=== PATIENT | male | born 1975 | race Two or more races ===

== ENCOUNTER → 2018-08-18 | Day surgery (SDC) | payer OTHER ==
[~2018-08-18] VITALS: Ht 172.7 cm; Wt 83.9 kg
[~2018-08-18] MED LIST: MIDAZOLAM HCL 1MG/1ML-2 ML VIAL ONE; ONDANSETRON HCL 4 MG/2 ML VIAL IV ONE; PROPOFOL 10 MG/ML 20 ML IV ONE; ceFAZolin 1GM/50ML 50 ML IV ONE; ePHEDrine SULFATE 50 MG/ML AMP IV PRN; fentaNYL CITRATE 100 MCG/2 ML VL IV ONE; fentaNYL CITRATE 5 ML ONE; hydrALAZINE HCL 20 MG/ML VL IV PRN
[2018-08-18 09:25] VITALS: BP 120/78
== END | disposition home or self-care (01) ==
LOC: EEVIPCON 07:00 → SUR 07:00
PROVIDERS: ATTEND Surgery
DX: K42.9 Umbilical hernia without obstruction or gangrene (principal); E11.9 Type 2 diabetes mellitus without complications; Z98.890 Other specified postprocedural states
CPT/HCPCS: 49585; 82962; J0690; J2250; J2704; J3010; Q4138

== ENCOUNTER → 2019-07-19 | Outpatient (CLI) | payer OTHER | END | disposition home or self-care (01) | LOC: CT 08:51 | DX: K80.20 Calculus of gallbladder without cholecystitis without obstruction (principal); R91.1 Solitary pulmonary nodule | CPT/HCPCS: 71250 ==

== ENCOUNTER 2019-12-30 17:29 | Inpatient (IN) | payer OTHER ==
[~2019-12-30] VITALS: Ht 172.7 cm; Wt 83.5 kg
[2019-12-30] MEDS ORDERED: DOXYCYCLINE 100MG/250ML 250 ML IV ONE (19:15)
[2019-12-30] MEDS ORDERED: DexAMETHasone SOD PHOS 10MG/1ML VIAL INJ IV ONE (19:15)
[2019-12-30] MEDS: methylPREDNISolone SOD SUCC 125 MG/2 ML VL IV SCH (22:00)
[2019-12-30 22:49] LABS: Basophils # (auto) 0 10 ^3/uL (0-0.2); Basophils % (auto) 0.1 % (0.0-2.0); Eosinophils # (auto) 0 10 ^3/uL (0-0.8); Eosinophils % (auto) 0.5 % (0.0-7.0); Hematocrit 49.7 % (41.0-53.0); Hemoglobin 17.3 g/dL (13.5-17.5); Lymphocytes % (auto) 29.1 % (10.0-50.0); Mean Corpuscular Hemoglobin 33.3 pg (28.0-32.0); Mean Corpuscular Hgb Conc. 34.8 g/dL (32.0-36.0); Mean Corpuscular Volume 95.6 fL (80.0-100.0); Monocytes # (auto) 0.6 10 ^3/uL (0-1.3); Monocytes % (auto) 8.3 % (0.0-12.0); Neutrophils # (auto) 4.2 10 ^3/uL (1.6-8.6); Nucleated Red Blood Cells % 0.1 %; Platelet Count (auto) 133 10^3/uL (140-450); Red Cell Distribution Width 13.8 % (11.8-14.3); White Blood Cell 6.8 10^3/uL (4.4-10.8)
[2019-12-30 23:01] LABS: Albumin 4.1 g/dL (3.4-5.0); BUN/Creatinine Ratio 9.4; Calcium 9.2 mg/dL (8.5-10.1)
[2019-12-30 23:04] LABS: Bilirubin, Total 0.7 mg/dL (0.2-1.0); Total Protein 9.8 g/dL (6.4-8.2)
--- NOTE | 2019-12-30 23:30 | NUR ---
MS admit from ER VANESSA CONNER admitted to [facility] after SBAR received. Patient oriented to BRAYAN GARCIA RN primary RN, unit, room, bed, and unit policies regarding patient care and visiting hours. Patient weighed by bedscale and encouraged to call if they need something. All questions and concerns addressed, patient verbalized understanding.
[2019-12-31] VITALS (8 sets, daily range): BP systolic 118–137; BP diastolic 81–96
[2019-12-31] MEDS ORDERED: METF-929 PO (02:26)
--- NOTE | 2019-12-31 06:00 | NUR ---
Patient states that he is taking 2 kinds of HIV medication namely; Descovy and RAL everyday and taking NPH 30 units in the morning and 20 units of NPH at night. Will relay this information to the day RN.
--- NOTE | 2019-12-31 07:19 | NUR ---
Respiratory note: POX CHECK, PT ASSESSED, NO RESP DISTRESS NOTED HR 89, RR 16, SPO2 91% ON ROOM AIR.
--- NOTE | 2019-12-31 07:55 | NUR ---
Opening Shift Note Assumed care of patient, awake and alertx4 . No S/S of distress/SOB or pain. Instructed on POC and to call for assist PRN, will continue to monitor for changes Q1hr and PRN. Guards at bedside for safety.
[2019-12-31 12:29] LABS: Basophils # (auto) 0 10 ^3/uL (0-0.2); Basophils % (auto) 0.1 % (0.0-2.0); Eosinophils # (auto) 0 10 ^3/uL (0-0.8); Hematocrit 46.2 % (41.0-53.0); Lymphocytes # (auto) 0.5 10 ^3/uL (0.4-5.4); Lymphocytes % (auto) 14.2 % (10.0-50.0); Mean Corpuscular Hgb Conc. 34.6 g/dL (32.0-36.0); Mean Corpuscular Volume 95.2 fL (80.0-100.0); Monocytes # (auto) 0.1 10 ^3/uL (0-1.3); Monocytes % (auto) 2.2 % (0.0-12.0); Neutrophils # (auto) 3.1 10 ^3/uL (1.6-8.6); Neutrophils % (auto) 83.5 % (37.0-80.0); Nucleated Red Blood Cells % 0.2 %; Platelet Count (auto) 121 10^3/uL (140-450); Red Blood Cells 4.85 10^6/uL (4.5-5.90); Red Cell Distribution Width 13.5 % (11.8-14.3); White Blood Cell 3.8 10^3/uL (4.4-10.8)
[2019-12-31] MEDS ORDERED: DEXTROSE (50%) 50ML SYRG IV PRN (13:00)
[2019-12-31] MEDS: cefTRIAXone 1GM/50ML D5W 50 ML IV SCH (13:29)
[2019-12-31] MEDS: methylPREDNISolone SOD SUCC 125 MG/2 ML VL IV SCH ×2 (13:29→22:45)
[2019-12-31] MEDS: ENOXAPARIN SOD 40 MG/0.4 ML SYRINGE SC SCH (13:30)
[2019-12-31] MEDS: AZITHROMYCIN 250 MG TAB PO SCH (13:30)
[2019-12-31] MEDS: ZINC SULFATE 220mg CAP or TAB PO SCH (13:30)
[2019-12-31] MEDS: ALBUTEROL SULF HFA 90MCG INH 200DOSE IN SCH ×2 (15:12→22:00)
[2019-12-31] MEDS: ACCU-CHEK COMFORT CURVE STRIP VI SCH ×2 (17:13→22:00)
[2019-12-31] MEDS: PANTOPRAZOLE 40 MG TAB PO SCH (18:25)
[2019-12-31] MEDS: metFORMIN HYDROCHLORIDE 500 MG TAB PO SCH (18:25)
[2019-12-31] MEDS: InsuLIN REG 1unit/0.01ml Soln (100units/ml) SC SCH ×2 (18:26→22:48)
--- NOTE | 2019-12-31 18:45 | NUR ---
Lucian Caba at bedside.
--- NOTE | 2019-12-31 19:06 | NUR ---
Closing Note Patient is comfortably resting in bed, no s/s of distress noted/stated. Bed at lowest locked position and call light within reach. Guards at bedside . Will endorse care to NOC RN.
--- NOTE | 2019-12-31 19:20 | NUR ---
Opening Shift Note Received report from rosalva Hernández RN. Assumed care of patient, awake and alert. No S/S of distress/SOB or pain. Instructed on POC and to call for assist PRN, will continue to monitor for changes Q1hr and PRN.
--- NOTE | 2019-12-31 19:30 | NUR ---
Received HIV medications from Day RN. Will inquire from Dr Eller whether to continue medication here.
--- NOTE | 2019-12-31 20:10 | NUR ---
Bridget Nunez regarding patient's HIV medications and pain medication. Awaiting call back.
--- NOTE | 2019-12-31 20:16 | NUR ---
called back Received an order from Dr Eller to continue HIV medications and Chadron for patient's pain.
[2019-12-31] MEDS ORDERED: PATIENTS OWN MEDICATION PO SCH (22:00)
[2019-12-31] MEDS: HYDROcodone-ACET 10/325MG TAB PO PRN (22:46)
[2020-01-01 05:00] VITALS: BP 121/81
[2020-01-01 06:25] LABS: Basophils # (auto) 0 10 ^3/uL (0-0.2); Eosinophils # (auto) 0 10 ^3/uL (0-0.8); Hematocrit 43.9 % (41.0-53.0); Lymphocytes # (auto) 0.9 10 ^3/uL (0.4-5.4); Mean Corpuscular Hemoglobin 32.7 pg (28.0-32.0); Mean Corpuscular Hgb Conc. 34.1 g/dL (32.0-36.0); Mean Corpuscular Volume 95.8 fL (80.0-100.0); Monocytes # (auto) 0.5 10 ^3/uL (0-1.3); Monocytes % (auto) 4.2 % (0.0-12.0); Neutrophils # (auto) 9.8 10 ^3/uL (1.6-8.6); Neutrophils % (auto) 87.8 % (37.0-80.0); Platelet Count (auto) 118 10^3/uL (140-450); Red Blood Cells 4.59 10^6/uL (4.5-5.90); Red Cell Distribution Width 13.6 % (11.8-14.3); White Blood Cell 11.1 10^3/uL (4.4-10.8)
[2020-01-01] MEDS: InsuLIN REG 1unit/0.01ml Soln (100units/ml) SC SCH ×5 (06:39→21:10)
[2020-01-01] MEDS: ALBUTEROL SULF HFA 90MCG INH 200DOSE IN SCH ×3 (07:03→21:30)
[2020-01-01] MEDS: ACCU-CHEK COMFORT CURVE STRIP VI SCH ×4 (07:10→21:01)
--- NOTE | 2020-01-01 08:00 | NUR ---
ASSESSMENT NOTE PT IS ALERT ORIENTED X4, RESTING IN BED COMFORTABLY, DENIES SHORTNESS, COUGH FEVER, ABLE TO SELF REAPPOSITION AND VERBALIS HIS DEMANDS, PAIN 0/10, LEFT HAND CUFF NOTED AT LEFT HAND, CHECKED FOR CIRCULATION AT ALL TIMES, PAIN 0/10, CALL LIGHT WITHIN REACH, GUARDS AT BED SIDE
[2020-01-01 08:53] VITALS: BP 120/68
[2020-01-01] MEDS: metFORMIN HYDROCHLORIDE 500 MG TAB PO SCH ×2 (08:57→18:44)
[2020-01-01] MEDS: cefTRIAXone 1GM/50ML D5W 50 ML IV SCH (08:58)
[2020-01-01] MEDS: PANTOPRAZOLE 40 MG TAB PO SCH (08:58)
[2020-01-01] MEDS: ZINC SULFATE 220mg CAP or TAB PO SCH (08:58)
[2020-01-01] MEDS: methylPREDNISolone SOD SUCC 125 MG/2 ML VL IV SCH ×3 (08:58→23:00)
[2020-01-01] MEDS: AZITHROMYCIN 250 MG TAB PO SCH (08:58)
[2020-01-01] MEDS: ENOXAPARIN SOD 40 MG/0.4 ML SYRINGE SC SCH (08:59)
[2020-01-01] MEDS ORDERED: INSULIN LANTUS (GLARGINE) 1 /0.01ml (100units/ml) SC SCH (10:00)
--- NOTE | 2020-01-01 10:00 | NUR ---
INCENTIVE SPIROMETER EDUCATED PT HOW TO USE THE INCENTIVE SPIROMETER, EXPLAIN TO PT WHY, VERBALIS UNDERSTANDING, PT WAS ABLE TO DEMONSTRATED BACK
[2020-01-01 13:05] VITALS: BP 120/68
[2020-01-01] MEDS: EMTRICITABINE PO SCH (14:55)
[2020-01-01] MEDS: TENOFOVIR ALAFENAMIDE PO SCH (14:55)
[2020-01-01] MEDS: RALTEGRAVIR POTASSIUM 400 MG PO SCH ×2 (14:56→21:01)
[2020-01-01 17:23] VITALS: BP 129/74
--- NOTE | 2020-01-01 18:49 | NUR ---
PT CONTINUE STABLE, CONTINUE MONITORING
--- NOTE | 2020-01-01 19:15 | NUR ---
Opening note Assumed care of patient, awake, alert and oriented x4, patient on room air with even and unlabored respirations, no S/S of distress/SOB or pain. Patient able to ambulate independently, bed in lowest locked position, side rails up x2, and call light within reach. Instructed on POC all questions answered at this time, and instructed to call for assist PRN, will continue to monitor for changes Q1hr and PRN.
[2020-01-01] MEDS: HYDROcodone-ACET 10/325MG TAB PO PRN (21:02)
--- NOTE | 2020-01-01 21:20 | NUR ---
Pain Patient is reporting pain 6/10 general body. Will medicate per md orders.
[2020-01-01 22:00] VITALS: BP 145/82
--- NOTE | 2020-01-01 22:30 | NUR ---
at bedside Dr Rascon at bedside Will follow through with any new orders.
[2020-01-01] MEDS: INSULIN LANTUS (GLARGINE) 1 /0.01ml (100units/ml) SC SCH (23:00)
[2020-01-02 05:00] VITALS: BP 139/86
[2020-01-02] MEDS: ALBUTEROL SULF HFA 90MCG INH 200DOSE IN SCH ×3 (06:32→21:48)
[2020-01-02] MEDS: ACCU-CHEK COMFORT CURVE STRIP VI SCH ×4 (06:35→22:11)
[2020-01-02 06:48] LABS: Hematocrit 40.8 % (41.0-53.0); Hemoglobin 14.3 g/dL (13.5-17.5); Mean Corpuscular Hemoglobin 33.1 pg (28.0-32.0); Mean Corpuscular Volume 94.4 fL (80.0-100.0); Platelet Count (auto) 121 10^3/uL (140-450); Red Blood Cells 4.32 10^6/uL (4.5-5.90); Red Cell Distribution Width 13.4 % (11.8-14.3); White Blood Cell 13.7 10^3/uL (4.4-10.8)
[2020-01-02 07:02] LABS: Basophils % (manual) 0 (0.0-2.0); Blast Cells 0; Eosinophils % (manual) 0 (0-7); Metamyelocytes % 0; Monocytes % (manual) 0 (0-12); Myelocytes % 0; Promyelocytes % 0; Reactive Lymphocytes 0
--- NOTE | 2020-01-02 07:12 | NUR ---
closing note endorsed care to day shift RN no distress or sob noted
[2020-01-02 07:46] LABS: Band Neutrophils % (manual) 3; Lymphocytes % (manual) 4 (10.0-50.0)
[2020-01-02] MEDS: metFORMIN HYDROCHLORIDE 500 MG TAB PO SCH ×2 (08:18→17:58)
[2020-01-02 09:00] VITALS: BP 138/79
[2020-01-02] MEDS: methylPREDNISolone SOD SUCC 125 MG/2 ML VL IV SCH ×2 (09:12→22:11)
[2020-01-02] MEDS: TENOFOVIR ALAFENAMIDE PO SCH (09:12)
[2020-01-02] MEDS: EMTRICITABINE PO SCH (09:12)
[2020-01-02] MEDS: cefTRIAXone 1GM/50ML D5W 50 ML IV SCH (09:12)
[2020-01-02] MEDS: ZINC SULFATE 220mg CAP or TAB PO SCH (09:13)
[2020-01-02] MEDS: AZITHROMYCIN 250 MG TAB PO SCH (09:13)
[2020-01-02] MEDS: ENOXAPARIN SOD 40 MG/0.4 ML SYRINGE SC SCH (09:13)
[2020-01-02] MEDS: PANTOPRAZOLE 40 MG TAB PO SCH (09:13)
[2020-01-02] MEDS: INSULIN LANTUS (GLARGINE) 1 /0.01ml (100units/ml) SC SCH (10:00)
[2020-01-02] MEDS: RALTEGRAVIR POTASSIUM 400 MG PO SCH ×2 (11:17→22:11)
[2020-01-02] MEDS: InsuLIN REG 1unit/0.01ml Soln (100units/ml) SC SCH ×3 (11:27→22:12)
[2020-01-02 12:00] VITALS: BP 133/86
[2020-01-02 17:00] VITALS: BP 145/87
--- NOTE | 2020-01-02 19:10 | NUR ---
Opening Shift Note Assumed care of patient, awake, alert and oriented x4, on room air with even and unlabored respirations, no S/S of distress/SOB or pain. Patient able to turn in bed independently, bed in lowest locked position, side rails up x2, call light within reach, and guards at bedside. Instructed on POC and to call for assist PRN, will continue to monitor for changes Q1hr and PRN.
--- NOTE | 2020-01-02 21:48 | NUR ---
RT NOTE PT WAS SEEN BY RT FOR MDI TX. PT TOLERATES WELL VIA SPACER. PT RINSED MOUTH WITH WATER POST MDI TX. HR 96, RR16, BS CLEAR/DIMINISHED, POX 96% ON ROOM AIR. CONT ORDERED Addendum: 01/02/20 at 2254 by Swati Harris RT Amended: Links added.
[2020-01-02 22:00] VITALS: BP 131/82
[2020-01-02] MEDS: HYDROcodone-ACET 10/325MG TAB PO PRN (22:11)
[2020-01-03 05:00] VITALS: BP 144/82
[2020-01-03 05:25] LABS: Basophils # (auto) 0 10 ^3/uL (0-0.2); Basophils % (auto) 0.1 % (0.0-2.0); Eosinophils # (auto) 0 10 ^3/uL (0-0.8); Hematocrit 41.5 % (41.0-53.0); Hemoglobin 14.5 g/dL (13.5-17.5); Lymphocytes # (auto) 0.6 10 ^3/uL (0.4-5.4); Lymphocytes % (auto) 4.8 % (10.0-50.0); Mean Corpuscular Hgb Conc. 34.8 g/dL (32.0-36.0); Mean Corpuscular Volume 94.7 fL (80.0-100.0); Monocytes # (auto) 0.4 10 ^3/uL (0-1.3); Monocytes % (auto) 3.2 % (0.0-12.0); Neutrophils # (auto) 10.7 10 ^3/uL (1.6-8.6); Neutrophils % (auto) 91.9 % (37.0-80.0); Platelet Count (auto) 119 10^3/uL (140-450); Red Blood Cells 4.38 10^6/uL (4.5-5.90); Red Cell Distribution Width 13.3 % (11.8-14.3); White Blood Cell 11.7 10^3/uL (4.4-10.8)
[2020-01-03] MEDS: ACCU-CHEK COMFORT CURVE STRIP VI SCH ×4 (06:38→22:17)
[2020-01-03] MEDS: InsuLIN REG 1unit/0.01ml Soln (100units/ml) SC SCH ×4 (06:41→22:19)
[2020-01-03] MEDS: ALBUTEROL SULF HFA 90MCG INH 200DOSE IN SCH ×3 (06:53→21:39)
[2020-01-03 09:00] VITALS: BP 135/89
[2020-01-03] MEDS: metFORMIN HYDROCHLORIDE 500 MG TAB PO SCH ×2 (09:00→17:46)
[2020-01-03] MEDS: methylPREDNISolone SOD SUCC 125 MG/2 ML VL IV SCH ×2 (10:25→22:13)
[2020-01-03] MEDS: cefTRIAXone 1GM/50ML D5W 50 ML IV SCH (10:25)
[2020-01-03] MEDS: TENOFOVIR ALAFENAMIDE PO SCH (10:25)
[2020-01-03] MEDS: ZINC SULFATE 220mg CAP or TAB PO SCH (10:25)
[2020-01-03] MEDS: RALTEGRAVIR POTASSIUM 400 MG PO SCH ×2 (10:25→22:13)
[2020-01-03] MEDS: EMTRICITABINE PO SCH (10:25)
[2020-01-03] MEDS: ENOXAPARIN SOD 40 MG/0.4 ML SYRINGE SC SCH (10:26)
[2020-01-03] MEDS: AZITHROMYCIN 250 MG TAB PO SCH (10:26)
[2020-01-03] MEDS: PANTOPRAZOLE 40 MG TAB PO SCH (10:26)
[2020-01-03] MEDS: INSULIN LANTUS (GLARGINE) 1 /0.01ml (100units/ml) SC SCH (10:35)
[2020-01-03 13:00] VITALS: BP 144/95
--- NOTE | 2020-01-03 13:57 | NUR ---
Nutrition Assessment Notes Please refer to link for full assessment notes. Est Energy needs: 1806-6616 kcals (20-23 kcal/kgBW) Est Protein needs: 68-85 gms/day (0.8-1.0 gm/kgBW) Will continue to monitor and reassess prn. Addendum: 01/03/20 at [address] Amended: Links added.
[2020-01-03 17:00] VITALS: BP 149/93
--- NOTE | 2020-01-03 19:09 | NUR ---
Opening Shift Note Assumed care of patient, awake, alert and oriented x4, on room air with even and unlabored respirations, no S/S of distress/SOB or pain. Patient able to ambulate independently, bed in lowest locked position, side rails up x2, call light within reach, and guards at bedside. Instructed on POC and to call for assist PRN, will continue to monitor for changes Q1hr and PRN.
[2020-01-03] MEDS: guaiFENesin 200 MG/10 ML UD PO PRN (20:22)
[2020-01-03 21:54] VITALS: BP 139/84
[2020-01-04] MEDS: guaiFENesin 200 MG/10 ML UD PO PRN ×4 (02:35→19:59)
[2020-01-04 05:25] VITALS: BP 145/81
[2020-01-04] MEDS: ACCU-CHEK COMFORT CURVE STRIP VI SCH ×4 (06:34→23:13)
[2020-01-04] MEDS: InsuLIN REG 1unit/0.01ml Soln (100units/ml) SC SCH ×4 (06:35→23:13)
[2020-01-04] MEDS: ALBUTEROL SULF HFA 90MCG INH 200DOSE IN SCH ×3 (07:12→22:24)
--- NOTE | 2020-01-04 07:30 | NUR ---
Opening Shift Note Assumed care of patient, awake and alert. No S/S of distress/SOB or pain. Instructed on POC and to call for assist PRN, will continue to monitor for changes Q1hr and PRN. Fall precautions in place per safety protocol.
[2020-01-04 08:38] VITALS: BP 143/80
[2020-01-04] MEDS: metFORMIN HYDROCHLORIDE 500 MG TAB PO SCH ×2 (08:47→18:08)
[2020-01-04 09:41] VITALS: BP 143/80
[2020-01-04] MEDS: cefTRIAXone 1GM/50ML D5W 50 ML IV SCH (10:05)
[2020-01-04] MEDS: RALTEGRAVIR POTASSIUM 400 MG PO SCH ×2 (10:06→23:13)
[2020-01-04] MEDS: methylPREDNISolone SOD SUCC 125 MG/2 ML VL IV SCH ×2 (10:06→23:11)
[2020-01-04] MEDS: ZINC SULFATE 220mg CAP or TAB PO SCH (10:06)
[2020-01-04] MEDS: TENOFOVIR ALAFENAMIDE PO SCH (10:06)
[2020-01-04] MEDS: EMTRICITABINE PO SCH (10:06)
[2020-01-04] MEDS: PANTOPRAZOLE 40 MG TAB PO SCH (10:06)
[2020-01-04] MEDS: AZITHROMYCIN 250 MG TAB PO SCH (10:07)
[2020-01-04] MEDS: ENOXAPARIN SOD 40 MG/0.4 ML SYRINGE SC SCH (10:07)
[2020-01-04] MEDS: INSULIN LANTUS (GLARGINE) 1 /0.01ml (100units/ml) SC SCH (10:15)
[2020-01-04 12:43] VITALS: BP 147/92
--- NOTE | 2020-01-04 15:28 | NUR ---
Covid Swab Patient re-swabbed for covid per MD Orders. Per Lab, swabs will be sent out as in house covid testing is on hold till further notice. Will cont to monitor patient.
[2020-01-04 17:00] VITALS: BP 133/84
--- NOTE | 2020-01-04 19:25 | NUR ---
Opening note pt is awake alert and oriented X4. Respirations even and nonlabored on 2l nc. pt presents with a nonproductive cough. 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 pt denies pain or discomfort at this time, will continue to monitor. POC discussed. pt verbalized understanding. bed rails up x2. pt is ambulatory. bed in low locked position, call light within reach.
[2020-01-04] MEDS: ASCORBIC ACID 500 MG TAB PO SCH (23:12)
[2020-01-05 05:00] VITALS: BP 151/91
[2020-01-05] MEDS: ACCU-CHEK COMFORT CURVE STRIP VI SCH ×3 (06:21→17:27)
[2020-01-05] MEDS: InsuLIN REG 1unit/0.01ml Soln (100units/ml) SC SCH ×3 (06:29→17:29)
[2020-01-05] MEDS: ALBUTEROL SULF HFA 90MCG INH 200DOSE IN SCH ×2 (06:44→14:03)
--- NOTE | 2020-01-05 07:25 | NUR ---
closing note pt resting in semi fowlers with HOB at 30 degrees. respirations even and non labored on 2Lnc. no s/s of pain or discomfort. bed in low locked position, call light within reach.
--- NOTE | 2020-01-05 07:34 | NUR ---
Opening Shift Note Assumed care of patient, awake and alert. No S/S of distress/SOB or pain. Instructed on POC and to call for assist PRN, will continue to monitor for changes Q1hr and PRN. Fall precautions in place per safety protocol. Guards at bedside for safety.
[2020-01-05 08:00] VITALS: BP 152/97
[2020-01-05] MEDS: metFORMIN HYDROCHLORIDE 500 MG TAB PO SCH ×2 (08:52→18:00)
[2020-01-05] MEDS: EMTRICITABINE PO SCH (08:53)
[2020-01-05] MEDS: RALTEGRAVIR POTASSIUM 400 MG PO SCH (08:53)
[2020-01-05] MEDS: TENOFOVIR ALAFENAMIDE PO SCH (08:53)
[2020-01-05] MEDS: methylPREDNISolone SOD SUCC 125 MG/2 ML VL IV SCH (08:53)
[2020-01-05] MEDS: cefTRIAXone 1GM/50ML D5W 50 ML IV SCH (08:53)
[2020-01-05] MEDS: PANTOPRAZOLE 40 MG TAB PO SCH (08:54)
[2020-01-05] MEDS: AZITHROMYCIN 250 MG TAB PO SCH (08:54)
[2020-01-05] MEDS: ASCORBIC ACID 500 MG TAB PO SCH (08:54)
[2020-01-05] MEDS: ZINC SULFATE 220mg CAP or TAB PO SCH (08:54)
[2020-01-05] MEDS: ENOXAPARIN SOD 40 MG/0.4 ML SYRINGE SC SCH (08:55)
[2020-01-05] MEDS: INSULIN LANTUS (GLARGINE) 1 /0.01ml (100units/ml) SC SCH (08:56)
[2020-01-05 09:00] VITALS: BP 152/97
[2020-01-05] MEDS: guaiFENesin 200 MG/10 ML UD PO PRN ×3 (09:28→19:11)
[2020-01-05] MEDS ORDERED: CHOLECALCIFEROL (VITD3) 1,000UNIT=25mCg TAB PO SCH (10:00)
--- NOTE | 2020-01-05 12:35 | NUR ---
PATIENT'S BLOOD PRESSURE IS 141/101, PATIENT DENIES A HEADACHE, SOB/DISTRESS. WILL PAGE FOR ORDERS. Addendum: 01/05/20 at 1539 by Alcira Montiel RN MD INFORMED/AWARE.
[2020-01-05] MEDS ORDERED: AZIT250T9 PO (15:00)
[2020-01-05] MEDS ORDERED: AML5T PO (15:00)
[2020-01-05] MEDS ORDERED: ALBUAER3 IN (15:00)
[2020-01-05] MEDS ORDERED: PRED20TA2 PO (15:00)
--- NOTE | 2020-01-05 15:15 | NUR ---
DR. MACARIO AT BEDSIDE.
[2020-01-05 17:00] VITALS: BP_SYST 142
[2020-01-05 17:57] VITALS: BP 142/103
--- NOTE | 2020-01-05 19:13 | NUR ---
closing note endorsed care to day shift RN no distress or sob noted. Guards at bedside. Patient has been discharged. Awaiting transportation.
[2020-01-06] MEDS ORDERED: amLODIPine BESYLATE 5 MG TAB PO SCH (10:00)
== END 2020-01-05 19:55 | disposition home or self-care (01) | DRG 177 ==
LOC: ER 17:29 → EDBD 17:29 → EEVIPCON 17:29 → OVERFLOW 17:30 → EAST 23:05
PROVIDERS: ADMIT Internal Medicine; ATTEND Internal Medicine
DX: U07.1 COVID-19 (principal); J96.01 Acute respiratory failure with hypoxia; J12.89 Other viral pneumonia; J01.00 Acute maxillary sinusitis, unspecified; E11.9 Type 2 diabetes mellitus without complications; I10 Essential (primary) hypertension; B19.20 Unspecified viral hepatitis C without hepatic coma; Z79.4 Long term (current) use of insulin; Z83.3 Family history of diabetes mellitus; Z79.899 Other long term (current) drug therapy; Z21 Asymptomatic human immunodeficiency virus [HIV] infection status
CPT/HCPCS: 36415; 71045; 80053; 82728; 82962; 83605; 85007; 85025; 85027; 85379; 86141; 87081; 94640; G0378; J0696; J1100; J1815; J3490

== ENCOUNTER 2020-01-06 01:18 | Emergency (ER) | payer OTHER ==
[~2020-01-06] VITALS: Ht 175.3 cm; Wt 79.4 kg
[~2020-01-06 01:18] MED LIST changes: +ALBUAER3 IN; +AML5T PO; +AZIT250T9 PO; +METF-929 PO; -MIDAZOLAM HCL 1MG/1ML-2 ML VIAL ONE; -ONDANSETRON HCL 4 MG/2 ML VIAL IV ONE; +PRED20TA2 PO; -PROPOFOL 10 MG/ML 20 ML IV ONE; -ceFAZolin 1GM/50ML 50 ML IV ONE; -ePHEDrine SULFATE 50 MG/ML AMP IV PRN; -fentaNYL CITRATE 100 MCG/2 ML VL IV ONE; -fentaNYL CITRATE 5 ML ONE; -hydrALAZINE HCL 20 MG/ML VL IV PRN
[2020-01-06 02:39] LABS: Hemoglobin 16.7 g/dL (13.5-17.5); Mean Corpuscular Hemoglobin 32.8 pg (28.0-32.0); Mean Corpuscular Hgb Conc. 34.9 g/dL (32.0-36.0); Mean Corpuscular Volume 94.1 fL (80.0-100.0); Platelet Count (auto) 186 10^3/uL (140-450); Red Cell Distribution Width 13.3 % (11.8-14.3); White Blood Cell 13.8 10^3/uL (4.4-10.8)
[2020-01-06 02:45] LABS: Basophils % (manual) 0 (0.0-2.0); Blast Cells 0; Eosinophils % (manual) 0 (0-7); Promyelocytes % 0; Reactive Lymphocytes 0
[2020-01-06 02:59] LABS: Albumin 3.2 g/dL (3.4-5.0); BUN/Creatinine Ratio 23.7; Calcium 8.9 mg/dL (8.5-10.1); Potassium 3.8 mmol/L (3.5-5.1)
[2020-01-06 03:02] LABS: INR 1.01 (0.9-1.15); Partial Thromboplastin Time < 20.0 sec (23.64-32.05)
[2020-01-06 03:04] LABS: Bilirubin, Total 0.5 mg/dL (0.2-1.0); Total Protein 8.2 g/dL (6.4-8.2)
[2020-01-06 03:13] LABS: Band Neutrophils % (manual) 1; Lymphocytes % (manual) 16 (10.0-50.0); Metamyelocytes % 2; Monocytes % (manual) 3 (0-12); Myelocytes % 2
[2020-01-06] MEDS ORDERED: SODIUM CHLORIDE 0.9% 2,400 ML IV ONE (05:00)
[2020-01-06 06:45] VITALS: BP 150/96
== END 2020-01-06 05:19 ==
LOC: EDBD 01:18 → EEVIPCON 01:22 → ER 01:22
DX: U07.1 COVID-19 (principal); J18.9 Pneumonia, unspecified organism; I10 Essential (primary) hypertension; E11.9 Type 2 diabetes mellitus without complications
CPT/HCPCS: 36415; 71045; 80053; 82728; 82962; 83605; 83880; 84484; 85007; 85027; 85610; 85730; 93005; 99285; J7030

== ENCOUNTER → 2020-03-13 | Outpatient (CLI) | payer OTHER | END | disposition home or self-care (01) | LOC: CT 10:07 | DX: K80.20 Calculus of gallbladder without cholecystitis without obstruction (principal); J98.4 Other disorders of lung; J12.9 Viral pneumonia, unspecified; R91.1 Solitary pulmonary nodule | CPT/HCPCS: 71250 ==